=== PATIENT | male | born 1985 | race Caucasian/White ===

== ENCOUNTER 2016-09-11 23:30 | Emergency (ER) | payer SELFPAY ==
[~2016-09-11] VITALS: Ht 180.3 cm; Wt 90.7 kg
== END 2016-09-12 01:50 | disposition home or self-care (01) ==
LOC: ED 23:30
DX: S61.212A Laceration without foreign body of right middle finger without damage to nail, initial encounter (principal); S61.214A Laceration without foreign body of right ring finger without damage to nail, initial encounter; Z88.0 Allergy status to penicillin; W25.XXXA Contact with sharp glass, initial encounter; Y93.89 Activity, other specified; Y92.89 Other specified places as the place of occurrence of the external cause; Y99.9 Unspecified external cause status